=== PATIENT | female | born 1965 | race Caucasian/White ===

== ENCOUNTER 2017-06-04 08:53 | Emergency (ER) | payer OTHER ==
[2017-06-04 08:54] VITALS: BMI 32.9
[2017-06-04 09:09] VITALS: TEMP 98.2
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
[2017-06-04 15:37] VITALS: RESP 18
[2017-06-04 15:38] VITALS: BP 128/72; PULSE 68; O2SAT 99
== END 2017-06-04 14:59 | disposition designated cancer center or children's hospital (05) ==
LOC: ED 08:53
DX: Z04.71 Encounter for examination and observation following alleged adult physical abuse (principal)